=== PATIENT | female | born 1980 | race Caucasian/White ===

== ENCOUNTER → 2020-11-09 | Outpatient (CLI) | payer BC ==
[~2020-11-09] MED LIST: NONE PER PT
[2020-11-09 09:13] LABS: BASOPHILS % (AUTO) 1 % (0-1); EOSINOPHILS % (AUTO) 4 % (1-7); LYMPHOCYTES % (AUTO) 29 % (22-44); MEAN CORPUSCULAR HEMOGLOBIN 33.1 pg (27.0-34.8); MEAN PLATELET VOLUME 8.8 fL (7.4-10.4); MONOCYTES % (AUTO) 11 % (2-9); NEUTROPHILS % (AUTO) 56 % (42-75); PLATELET COUNT 308 x10^3/uL (130-400); RED BLOOD COUNT 4.56 x10^6/uL (3.82-5.3); RED CELL DISTRIBUTION WIDTH 12.9 % (9.6-15.2)
[2020-11-09 09:23] LABS: ANION GAP 6 mmol/L (5-15); CALCIUM 9.9 mg/dL (8.5-10.1); CHLORIDE 104 mmol/L (98-107); CREATININE 0.82 mg/dL (0.55-1.02)
== END | disposition home or self-care (01) ==
LOC: STAR 07:59
PROVIDERS: ATTEND Obstetrics & Gynecology
DX: Z01.812 Encounter for preprocedural laboratory examination (principal); Z20.822 Contact with and (suspected) exposure to COVID-19
CPT/HCPCS: 36415; 80048; 84702; 85025; U0003; U0005

== ENCOUNTER 2020-11-15 13:24 | Day surgery (SDC) | payer BC ==
[~2020-11-15] VITALS: Ht 165.1 cm; Wt 84.7 kg
[2020-11-15] MEDS ORDERED: BUPIVACAINE/PF 0.25% ONE (14:36)
[2020-11-15] MEDS ORDERED: EPINEPHRINE 1 MG/ML, 1ML ONE (14:37)
[2020-11-15] MEDS ORDERED: LACTATED RINGERS 1,000 ML IV SCH (15:00)
[2020-11-15] MEDS ORDERED: CHLORHEXIDINE 15 ML UDC PO ONE (15:00)
[2020-11-15 15:12] VITALS: BP 114/83
[2020-11-15] MEDS ORDERED: FENTANYL PF 250 MCG/5ML ONE (15:25)
[2020-11-15] MEDS ORDERED: MIDAZOLAM 1 MG/ML, 2ML ONE (15:25)
[2020-11-15] MEDS ORDERED: LABETALOL 5MG/ML, 20ML IV PRN (15:30)
[2020-11-15] MEDS ORDERED: DIPHENHYDRAMINE 50 MG/ML, 1ML IVPush PRN (15:30)
[2020-11-15] MEDS ORDERED: ACETAMINOPHEN 325 MG TABLET PO PRN (15:30)
[2020-11-15] MEDS ORDERED: hydrALAzine 20 MG/ML, 1ML IV PRN (15:30)
[2020-11-15] MEDS ORDERED: PROMETHAZINE 25 MG/ML, 1ML IVPush PRN (15:30)
[2020-11-15] MEDS ORDERED: MEPERIDINE/PF 25MG/0.5ML IVPush PRN (15:30)
[2020-11-15] MEDS ORDERED: HALOPERIDOL 5 MG/ML IV PRN (15:30)
[2020-11-15] MEDS ORDERED: OXYcodone 5 MG/5 ML ORAL.SOL UDC PO PRN (15:30)
[2020-11-15] MEDS ORDERED: HYDROmorphone 1 MG/ML, 1ML INJ IVPush PRN (15:30)
[2020-11-15] MEDS ORDERED: FENTANYL PF 100 MCG/2ML IV PRN (15:30)
[2020-11-15] MEDS ORDERED: KETOROLAC 30 MG/1 ML ONE (16:08)
[2020-11-15] MEDS ORDERED: SUCCINYLCHOLINE 20 MG/ML, 10ML ONE (16:19)
[2020-11-15] MEDS ORDERED: ONDANSETRON 2MG/ML, 2ML ONE (16:19)
[2020-11-15] MEDS ORDERED: ROCURONIUM 10MG/ML,5ML ONE (16:19)
[2020-11-15] MEDS ORDERED: CEFAZOLIN 1,000 MG ONE (16:19)
[2020-11-15] MEDS ORDERED: DEXAMETHASONE 4 MG/ML, 1ML ONE (16:19)
[2020-11-15] MEDS ORDERED: PROPOFOL 10 MG/ML, 20ML ONE (16:19)
[2020-11-15] MEDS ORDERED: NEOSTIGMINE 1 MG/ML, 10ML ONE (16:19)
[2020-11-15] MEDS ORDERED: GLYCOPYRROLATE 0.2MG/1ML, 5ML ONE (16:19)
[2020-11-15] MEDS ORDERED: PROMETHAZINE 25 MG/ML, 1ML ONE (16:30)
[2020-11-15] MEDS ORDERED: OXYcodone 5 MG/5 ML ORAL.SOL UDC ONE (16:38)
[2020-11-15] MEDS ORDERED: FENTANYL PF 100 MCG/2ML ONE (16:38)
[2020-11-15] MEDS ORDERED: ACETAMINOPHEN 650 MG/20.3 ML UDC ONE (16:38)
== END 2020-11-15 18:19 | disposition home or self-care (01) ==
LOC: OR 13:24
PROVIDERS: ATTEND Obstetrics & Gynecology
DX: Z30.2 Encounter for sterilization (principal); Z79.899 Other long term (current) drug therapy
CPT/HCPCS: 36415; 58670; 81025; 86850; 86900; 88302; J0171; J0330; J0690; J1100; J1885; J2250; J2405; J2550; J2704; J2710; J3010; J7120